=== PATIENT | female | born 1965 | race Hispanic/Latino ===

== ENCOUNTER 2017-09-14 15:22 | Emergency (ER) | payer SELFPAY ==
[~2017-09-14] VITALS: Ht 167.6 cm; Wt 82.6 kg
[2017-09-14] MEDS ORDERED: TETANUS/DIPHTHERIA TOX ADULT 0.5 ML SYR IM ONE (15:30)
== END 2017-09-14 17:08 | disposition home or self-care (01) ==
LOC: ER 15:22
DX: S61.216A Laceration without foreign body of right little finger without damage to nail, initial encounter (principal); W45.8XXA Other foreign body or object entering through skin, initial encounter; Y93.G3 Activity, cooking and baking; Y92.000 Kitchen of unspecified non-institutional (private) residence as the place of occurrence of the external cause
CPT/HCPCS: 90471; 90714; 99283